=== PATIENT | male | born 1990 | race Hispanic/Latino ===

== ENCOUNTER 2018-04-13 19:47 | Emergency (ER) | payer OTHER, SELFPAY ==
--- NOTE | 2018-04-13 19:58 | ER ---
Nurse's Notes [facility] Name: Saeid Coffey Jr Age: 28 yrs Sex: Male : 1990 Arrival Date: 04/13/2018 Time: 19:48 Bed Waiting Private MD: Diagnosis: Presentation: 04/13 19:56 Note Patient informed registration that he was going to leave and would come back if it aj got worse. ED Course: 19:48 Patient arrived in ED. am2 19:57 Meir Ovalles MD is Attending Physician. debbie Administered Medications: No medications were administered Outcome: 19:57 Eloped from waiting room, before seeing physician Time discovered patient gone: aj April 13, 2018 at 19:57 19:57 Patient left the ED. debbie Signatures: Ania Middleton, RN RN Ania Kaba am2
== END 2018-04-13 19:57 | disposition left against medical advice (07) ==
LOC: ER 19:47
DX: Z53.21 Procedure and treatment not carried out due to patient leaving prior to being seen by health care provider (principal)

== ENCOUNTER 2018-05-06 18:00 | Emergency (ER) | payer SELFPAY ==
[2018-05-06] MEDS ORDERED: KETOROLAC 30 MG/ML INJ ONE (18:29)
[2018-05-06 18:52] LABS: Absolute Monocytes 0.7 K/uL (0.1-1.3); Basophils % 0.5 % (0-1.3); Eosinophils % 2.2 % (0-4.4); Hematocrit 39.3 % (39.6-49.0); Lymphocytes % 24.9 % (15.3-44.8); MCH 31.8 pg (27.0-35.0); MCV 90.4 fL (80-100); RBC Red Blood Cell Count 4.35 M/uL (4.33-5.43)
--- NOTE | 2018-05-06 18:57 | RAD REPORT ---
EXAM DESCRIPTION: RAD - Elbow Left 3 View - 05/06/2018 6:45 pm CLINICAL HISTORY: Soft tissue swelling, cellulitis symptoms, no trauma history detailed COMPARISON: None. FINDINGS: No fracture is identified and no elevated posterior fat pad. There is no dislocation or pe riosteal reaction noted. No acute bone or joint finding. Edematous soft tissues in the elbow and pro ximal forearm without air or foreign body. No soft tissue calcifications. IMPRESSION: Soft tissue edema changes are present. No acute bone or joint finding.
[2018-05-06 19:13] LABS: BUN Blood Urea Nitrogen 13 mg/dL (7-18); Bicarbonate 26 mmol/L (21-32); Glucose Level 94 mg/dL (74-106); Potassium 3.8 mmol/L (3.5-5.1); Sodium Level 143 mmol/L (136-145); Uric Acid 5.2 mg/dL (3.5-7.2)
[2018-05-06] MEDS ORDERED: SMZ./TMP. 800/160 MG TABLET ONE (19:31)
[2018-05-06] MEDS ORDERED: CLINDAMYCIN 600MG/D5W 600 MG/50 ML BAG IV ONE (19:31)
--- NOTE | 2018-05-06 19:44 | ER ---
Nurse's Notes [facility] Name: Saeid Coffey Jr Age: 28 yrs Sex: Male : 1990 Arrival Date: 05/06/2018 Time: 18:02 Bed 23 Private MD: Diagnosis: Cellulitis of left upper limb Presentation: 05/06 18:03 Presenting complaint: Patient states: Left elbow swelling since Tuesday. Transition aj of care: patient was not received from another setting of care. Onset of symptoms was May 02, 2018. Risk Assessment: Do you want to hurt yourself or someone else? Patient reports no desire to harm self or others. Initial Sepsis Screen: Does the patient meet any 2 criteria? No. Patient's initial sepsis screen is negative. Does the patient have a suspected source of infection? No. Patient's initial sepsis screen is negative. Care prior to arrival: None. 18:03 Method Of Arrival: Ambulatory aj 18:03 Acuity: KELLY 4 aj Triage Assessment: 18:04 General: Appears in no apparent distress. comfortable, Behavior is calm, cooperative, aj appropriate for age. Pain: Denies pain. Neuro: Level of Consciousness is awake, alert, obeys commands, Oriented to person, place, time, situation, Appropriate for age. Respiratory: No deficits noted. Airway is patent Respiratory effort is even, unlabored, Respiratory pattern is regular, symmetrical. Derm: Skin is intact, is healthy with good turgor, Skin is pink, warm \T\ dry. normal. Musculoskeletal: Swelling present in left elbow. Historical: - Allergies: 18:04 No Known Allergies; aj - Home Meds: 18:04 None [Active]; aj - PMHx: 18:04 None; aj - PSHx: 18:04 None; aj - Immunization history:: Last tetanus immunization: unknown. - Social history:: Smoking status: Patient uses tobacco products, denies chronic smoking, but will smoke occasionally, Patient uses alcohol, occasionally. - Ebola Screening: : Patient negative for fever greater than or equal to 101.5 degrees Fahrenheit, and additional compatible Ebola Virus Disease symptoms Patient denies exposure to infectious person Patient denies travel to an Ebola-affected area in the 21 days before illness onset No symptoms or risks identified at this time. Screenin:16 Abuse screen: Denies threats or abuse. Nutritional screening: No deficits noted. tl3 Tuberculosis screening: No symptoms or risk factors identified. Fall Risk None identified. Assessment: 18:16 General: Appears in no apparent distress. slender, well groomed, well developed, well tl3 nourished, Behavior is calm, cooperative, appropriate for age. Pain: Complains of pain in left elbow Pain currently is 5 out of 10 on a pain scale. at worst was 9 out of 10 on a pain scale. Neuro: No deficits noted. Level of Consciousness is awake, alert, obeys commands, Oriented to person, place, time, situation, Appropriate for age. Cardiovascular: Patient's skin is warm and dry. Respiratory: Airway is patent Respiratory effort is even, unlabored, Respiratory pattern is regular, symmetrical. GI: No signs and/or symptoms were reported involving the gastrointestinal system. : No signs and/or symptoms were reported regarding the genitourinary system. EENT: No signs and/or symptoms were reported regarding the EENT system. Derm: No signs and/or symptoms reported regarding the dermatologic system. Musculoskeletal: Reports since three days of pain and swelling to right elbow. 19:09 Reassessment: Patient appears in no apparent distress at this time. No changes from tl3 previously documented assessment. Patient and/or family updated on plan of care and expected duration. Pain level reassessed. Patient is alert, oriented x 3, equal unlabored respirations, skin warm/dry/pink. pt states that he is feeling better, still some soreness in elbow area. Vital Signs: 18:04 BP 138 / 79; Pulse 94; Resp 17; Temp 98.3; Pulse Ox 98% on R/A; Weight 70.76 kg; Height aj 5 ft. 9 in. (175.26 cm); 20:03 BP 131 / 83; Pulse 85; Resp 18; Pulse Ox 98% on R/A; tl3 18:04 Body Mass Index 23.04 (70.76 kg, 175.26 cm) ED Course: 18:02 Patient arrived in ED. mr 18:04 Triage completed. aj 18:04 Arm band placed on right wrist. Patient placed in an exam room. 18:06 Jesus Acuna PA is PHCP. cp 18:06 Jose Sher MD is Attending Physician. cp 18:06 Jasmyn, Kenia, RN is Primary Nurse. tl3 18:16 Bed in low position. Call light in reach. tl3 18:16 No provider procedures requiring assistance completed. tl3 18:27 Inserted saline lock: 20 gauge in right antecubital area, using aseptic technique. mg2 Blood collected. 18:43 XRAY Elbow LEFT 3 view In Process Unspecified. EDMS 19:31 Adriel Menezes MD is Referral Physician. cp 20:11 IV discontinued, intact, bleeding controlled, No redness/swelling at site. Pressure tl3 dressing applied. Administered Medications: 18:35 Drug: TORadol 30 mg Route: IVP; Site: right antecubital; ss 19:08 Follow up: Response: Pain is decreased tl3 19:33 Drug: Clindamycin 600 mg Route: IVPB; Infused Over: 30 mins; Site: right antecubital; tl3 Delivery: Primary tubing; 20:06 Follow up: IV Status: Completed infusion; IV Intake: 50ml tl3 19:33 Drug: Bactrim (160 mg-800 mg (DS) 1 tablet Route: PO; tl3 20:07 Follow up: Response: No adverse reaction tl3 Intake: 20:06 IV: 50ml; Total: 50ml. tl3 Outcome: 19:31 Discharge ordered by MD. cp 20:07 Discharged to home ambulatory. tl3 20:07 Condition: improved 20:07 Discharge instructions given to patient, family, Instructed on discharge instructions, follow up and referral plans. medication usage, Demonstrated understanding of instructions, follow-up care, medications, Prescriptions given X 3. 20:12 Patient left the ED. tl3 Signatures: Dispatcher [employer] EDSD Ania Middleton RN RN aj Rivera, Mary mr Jessica Hernandez RN RN ss Page, Corey, RANGEL PA Kenia Lake RN RN tl3 Girish Maya RN RN mg2 Corrections: (The following items were deleted from the chart) 18:27 18:16 Patient did not have IV access during this emergency room visit. tl3 mg2
--- NOTE | 2018-05-06 19:44 | EDPHYS ---
Physician Documentation [facility] Name: Saeid Coffey Jr Age: 28 yrs Sex: Male : 1990 Arrival Date: 05/06/2018 Time: 18:02 Bed 23 Private MD: ED Physician Jose Sher HPI: 05/06 18:25 This 28 yrs old Male presents to ER via Ambulatory with complaints of elbow cp swelling. Historical: - Allergies: 18:04 No Known Allergies; aj - Home Meds: 18:04 None [Active]; aj - PMHx: 18:04 None; aj - PSHx: 18:04 None; aj - Immunization history:: Last tetanus immunization: unknown. - Social history:: Smoking status: Patient uses tobacco products, denies chronic smoking, but will smoke occasionally, Patient uses alcohol, occasionally. - Ebola Screening: : Patient negative for fever greater than or equal to 101.5 degrees Fahrenheit, and additional compatible Ebola Virus Disease symptoms Patient denies exposure to infectious person Patient denies travel to an Ebola-affected area in the 21 days before illness onset No symptoms or risks identified at this time. ROS: 18:30 Constitutional: Negative for body aches, chills, fever, poor PO intake. cp 18:30 Eyes: Negative for injury, pain, redness, and discharge. cp 18:30 Cardiovascular: Negative for chest pain, palpitations. 18:30 Respiratory: Negative for cough, shortness of breath, wheezing. 18:30 Abdomen/GI: Negative for abdominal pain, nausea, vomiting, and diarrhea. 18:30 MS/extremity: Positive for pain, swelling, tenderness, warmth, of the left elbow, Negative for injury or acute deformity, decreased range of motion, paresthesias. 18:30 Skin: Negative for abscesses. 18:30 All other systems are negative. Exam: 18:35 Constitutional: The patient appears in no acute distress, alert, awake, non-toxic, well cp developed, well nourished. 18:35 Head/Face: Normocephalic, atraumatic. cp 18:35 Eyes: Periorbital structures: appear normal, Conjunctiva: normal, no exudate, no injection, Sclera: no appreciated abnormality, Lids and lashes: appear normal, bilaterally. 18:35 ENT: External ear(s): are unremarkable, Nose: is normal, Mouth: Lips: moist, Oral mucosa: pink and intact, moist, Posterior pharynx: is normal, airway is patent, no erythema, no exudate. 18:35 Chest/axilla: Inspection: normal, Palpation: is normal, no crepitus, no tenderness. 18:35 Cardiovascular: Rate: normal, Rhythm: regular, Pulses: Pulses are 2+ in right radial artery and left radial artery. 18:35 Respiratory: the patient does not display signs of respiratory distress, Respirations: normal, no use of accessory muscles, no retractions, no splinting, no tachypnea, labored breathing, is not present, Breath sounds: are clear throughout, no decreased breath sounds, no stridor, no wheezing. 18:35 Abdomen/GI: Exam negative for discomfort, distension, guarding, Inspection: abdomen appears normal. 18:35 Skin: abscess, not appreciated, cellulitis, that is moderate, irregular, on the left elbow. Vital Signs: 18:04 BP 138 / 79; Pulse 94; Resp 17; Temp 98.3; Pulse Ox 98% on R/A; Weight 70.76 kg; Height aj 5 ft. 9 in. (175.26 cm); 20:03 BP 131 / 83; Pulse 85; Resp 18; Pulse Ox 98% on R/A; tl3 18:04 Body Mass Index 23.04 (70.76 kg, 175.26 cm) aj MDM: 18:06 Patient medically screened. cp 19:00 Differential diagnosis: cellulitis, bursitis, septic joint, abscess. cp 19:30 Data reviewed: vital signs, nurses notes, lab test result(s), radiologic studies, plain cp films. 19:30 Test interpretation: by ED physician or midlevel provider: plain radiologic studies. cp Counseling: I had a detailed discussion with the patient and/or guardian regarding: the historical points, exam findings, and any diagnostic results supporting the discharge/admit diagnosis, lab results, radiology results, the need for outpatient follow up, a orthopedic surgeon, to return to the emergency department if symptoms worsen or persist or if there are any questions or concerns that arise at home. Response to treatment: the patient's symptoms have mildly improved after treatment, and as a result, I will discharge patient. ED course: VSS. Pain improved with meds. Will discharge to home for continued monitoring. 09/29 18:18 Order name: CBC with Diff; Complete Time: 19:11 cp 05/06 19:11 Interpretation: Normal except: HCT 39.3. cp 05/06 18:18 Order name: BMP; Complete Time: 19:20 cp 05/06 18:18 Order name: Uric Acid; Complete Time: 19:20 cp 05/06 18:19 Order name: XRAY Elbow LEFT 3 view; Complete Time: 19:11 cp 05/06 18:19 Order name: IV; Complete Time: 18:27 cp Administered Medications: 18:35 Drug: TORadol 30 mg Route: IVP; Site: right antecubital; ss 19:08 Follow up: Response: Pain is decreased tl3 19:33 Drug: Clindamycin 600 mg Route: IVPB; Infused Over: 30 mins; Site: right antecubital; tl3 Delivery: Primary tubing; 20:06 Follow up: IV Status: Completed infusion; IV Intake: 50ml tl3 19:33 Drug: Bactrim (160 mg-800 mg (DS) 1 tablet Route: PO; tl3 20:07 Follow up: Response: No adverse reaction tl3 Disposition: 05/07 18:22 Co-signature as Attending Physician, Jose Sher MD. Disposition: 05/06/18 19:31 Discharged to Home. Impression: Cellulitis of left upper limb. - Condition is Stable. - Discharge Instructions: Cellulitis, Adult. - Prescriptions for Anaprox DS 550 mg Oral Tablet - take 1 tablet by ORAL route every 12 hours As needed; 20 tablet. Clindamycin HCl 300 mg Oral Capsule - take 1 capsule by ORAL route every 6 hours for 10 days; 40 capsule. Bactrim DS 800- 160 mg Oral Tablet - take 1 tablet by ORAL route every 12 hours for 10 days; 20 tablet. - Medication Reconciliation Form, Thank You Letter, Antibiotic Education, Prescription Opioid Use form. - Follow up: Adriel Menezes MD; When: 48 Hours; Reason: Recheck today's complaints. - Problem is new. - Symptoms have improved. Signatures: Dispatcher [employer] Ania Franco RN RN aj Smirch, Shelby, RN RN ss Jesus Acuna, RANGEL PA Jose Sherman MD MD Kenia Vines RN RN tl3 Corrections: (The following items were deleted from the chart) 05/06 20:12 19:31 05/06/2018 19:31 Discharged to Home. Impression: Cellulitis of left upper limb. tl3 Condition is Stable. Forms are Medication Reconciliation Form, Thank You Letter, Antibiotic Education, Prescription Opioid Use. Follow up: Adriel Menezes; When: 48 Hours; Reason: Recheck today's complaints. Problem is new. Symptoms have improved. cp
[2018-05-06 20:24] VITALS: TEMP 98.3; O2SAT 98
[2018-05-06 20:25] VITALS: BP 131/83
== END 2018-05-06 20:12 | disposition home or self-care (01) ==
LOC: ER 18:00
DX: L03.114 Cellulitis of left upper limb (principal); Z72.0 Tobacco use
CPT/HCPCS: 36415; 80048; 84550; 85025; 96365; 96375; 99284

== ENCOUNTER 2018-07-05 23:40 | Emergency (ER) | payer SELFPAY ==
[2018-07-06] MEDS ORDERED: TETANUS & DIPHTHERIA TOX,ADULT 0.5 ML VIAL ONE (01:57)
[2018-07-06] MEDS ORDERED: LIDOCAINE 1% MPF 5 ML VIAL ONE ×3 (01:58→03:14)
[2018-07-06] MEDS ORDERED: LIDOCAINE 1% MPF 30 ML VIAL ONE (03:16)
[2018-07-06] MEDS ORDERED: CEFAZOLIN SODIUM 1 GM/VIAL ONE (03:58)
--- NOTE | 2018-07-06 04:01 | ER ---
Nurse's Notes [facility] Name: Saeid Coffey Jr Age: 28 yrs Sex: Male : 1990 Arrival Date: 07/05/2018 Time: 23:41 Bed 6 Private MD: Diagnosis: Laceration without foreign body of right ring finger without damage to nail;Laceration without foreign body of right little finger without damage to nail;Other injury of flexor muscle, fascia and tendon of right little finger at wrist and hand level;Other injury of flexor muscle, fascia and tendon of right ring finger at wrist and hand level Presentation: 07/05 23:46 Presenting complaint: Patient states: Patient was cooking and he was cutting onions and ao cut his right pinkie finger with the kitchen knife. Patient had a laceration on the right had. Pressure put and bleeding is getting control. Transition of care: patient was not received from another setting of care. Onset of symptoms was July 05, 2018 at 22:00. Risk Assessment: Do you want to hurt yourself or someone else? Patient reports no desire to harm self or others. Initial Sepsis Screen: Does the patient meet any 2 criteria? No. Patient's initial sepsis screen is negative. Does the patient have a suspected source of infection? No. Patient's initial sepsis screen is negative. Care prior to arrival: None. 23:46 Method Of Arrival: Ambulatory ao 23:46 Acuity: KELLY 3 ao Historical: - Allergies: 23:49 No Known Allergies; ao - Home Meds: 23:49 None [Active]; ao - PMHx: 23:49 None; ao - PSHx: 23:49 None; ao - Immunization history:: Adult Immunizations up to date, Last tetanus immunization: unknown. - Social history:: Smoking status: Patient uses tobacco products, denies chronic smoking, but will smoke occasionally, Patient/guardian denies using alcohol, street drugs. - Ebola Screening: : Patient negative for fever greater than or equal to 101.5 degrees Fahrenheit, and additional compatible Ebola Virus Disease symptoms Patient denies exposure to infectious person Patient denies travel to an Ebola-affected area in the 21 days before illness onset. Screenin/29 01:53 Abuse screen: Denies threats or abuse. Nutritional screening: No deficits noted. jd3 Tuberculosis screening: No symptoms or risk factors identified. Fall Risk Ambulatory Aid- None/Bed Rest/Nurse Assist (0 pts). Gait- Normal/Bed Rest/Wheelchair (0 pts) Mental Status- Oriented to own ability (0 pts). Total Delarosa Fall Scale indicates No Risk (0-24 pts). Assessment: 01:52 General: Appears in no apparent distress. uncomfortable, Behavior is calm, cooperative, jd3 appropriate for age. Pain: Complains of pain in right hand. Neuro: Level of Consciousness is awake, alert, obeys commands, Oriented to person, place, time, situation. Cardiovascular: Capillary refill < 3 seconds Patient's skin is warm and dry. Respiratory: Airway is patent Respiratory effort is even, unlabored, Respiratory pattern is regular, symmetrical. GI: : No signs and/or symptoms were reported regarding the genitourinary system. EENT: No signs and/or symptoms were reported regarding the EENT system. Derm: Skin is intact, Skin is dry, Skin is normal, Skin temperature is warm. Musculoskeletal: Circulation, motion, and sensation intact. Range of motion: intact in all extremities. Injury Description: Laceration sustained to palmar aspect of middle phalanx of right little finger and palmar aspect of middle phalanx of right ring finger is 0.5 to 2.5 cm long, not bleeding, a small amount of bleeding noted at this time. 02:50 Reassessment: Patient and/or family updated on plan of care and expected duration. Pain ea level reassessed. Patient is alert, oriented x 3, equal unlabored respirations, skin warm/dry/pink. 03:00 Reassessment: Patient and/or family updated on plan of care and expected duration. Pain ea level reassessed. Patient is alert, oriented x 3, equal unlabored respirations, skin warm/dry/pink. 04:08 Reassessment: Report called to Joselyn ALCARAZ at [facility]. ea 04:58 Reassessment: Patient and/or family updated on plan of care and expected duration. Pain ea level reassessed. Patient is alert, oriented x 3, equal unlabored respirations, skin warm/dry/pink. [facility] at facility for transfer. Vital Signs: 07/05 23:49 BP 119 / 69; Pulse 72; Resp 18; Temp 98.1(O); Pulse Ox 100% ; Weight 68.04 kg; Height 5 ao ft. 7 in. (170.18 cm); Pain 02/14; 07/06 01:30 BP 120 / 70; Pulse 60; Resp 18; Pulse Ox 98% on R/A; ea 03:20 BP 117 / 72; Pulse 68; Resp 18; Pulse Ox 99% ; ea 04:45 BP 120 / 68; Pulse 70; Resp 18; Temp 98; Pulse Ox 99% ; ea 07/05 23:49 Body Mass Index 23.49 (68.04 kg, 170.18 cm) ao ED Course: 07/05 23:41 Patient arrived in ED. am2 23:49 Triage completed. ao 23:51 Arm band placed on right wrist. Patient placed in an exam room, on a stretcher, on ao pulse oximetry, Patient notified of wait time. 07/06 01:08 Michael aCrmona NP is PHCP. pm1 01:08 Meir Ovalles MD is Attending Physician. pm1 01:44 Hilda Mcpherson RN is Primary Nurse. ea 01:54 Patient has correct armband on for positive identification. Bed in low position. Call jd3 light in reach. Side rails up X 1. Adult w/ patient. 01:57 X-ray completed. Portable x-ray completed in exam room. Patient tolerated procedure kw well. 01:58 Hand Right 3 View XRAY In Process Unspecified. EDMS 03:14 Assist provider with laceration repair on palmar aspect of middle phalanx of right ring ea finger and palmar aspect of middle phalanx of right little finger that was between 2.6 to 7.5 cm using sutures. Set up tray. Performed by Michael Carmona NP Patient tolerated well. 05:00 Patient did not have IV access during this emergency room visit. ea Administered Medications: 02:02 Drug: Tetanus-Diphtheria Toxoid Adult 0.5 ml {Cooler Operator: [employer]. Exp: jd3 08/26/2020. Lot #: [id number]. } Route: IM; Site: left deltoid; 03:03 Follow up: Response: No adverse reaction jd3 03:02 Drug: Lidocaine (1 %) 5 ml {Note: administered by Dennis LEWIS.} Volume: 5 ml; Route: jd3 Infiltration; 03:55 Drug: Ancef 1 grams Route: IM; Site: right gluteus; ea 04:53 Follow up: Response: No adverse reaction jd3 Outcome: 04:00 ER care complete, transfer ordered by MD. pm1 04:10 Instructed on the need for transfer. ea 04:59 Condition: stable ea 05:00 Transferred by ground EMS to [facility], Transfer form completed. ea 05:01 Patient left the ED. ea Signatures: Dispatcher [employer] EDMS Naty Love Alex, RN RN Michael Madrid, DEBBIE STOKER INSTALLER pm1 Ania Vogel am2 Hilda Mcpherson, Remington Hobson RN, ea, RN RN jd3
--- NOTE | 2018-07-06 04:01 | EDPHYS ---
Physician Documentation [facility] Name: Saeid Coffey Jr Age: 28 yrs Sex: Male : 1990 Arrival Date: 07/05/2018 Time: 23:41 Bed 6 Private MD: ED Physician Meir Ovalles HPI: 07/06 02:00 This 28 yrs old Male presents to ER via Ambulatory with complaints of Hand pm1 Injury. 02:00 The patient or guardian reports a laceration, 4 cm(s). The complaints affect the palmar pm1 aspect of proximal phalanx of right little finger and palmar aspect of proximal phalanx of right ring finger. Context: The problem was sustained at home, resulted from accidental laceration while cutting vegetables. Onset: The symptoms/episode began/occurred just prior to arrival. Modifying factors: The symptoms are alleviated by nothing, the symptoms are aggravated by nothing. Associated signs and symptoms: Pertinent negatives: cyanosis distally, decreased sensation distally, numbness distally, tingling distally. The patient has not experienced similar symptoms in the past. The patient has not recently seen a physician, and does not have an established primary care provider. Historical: - Allergies: 07/05 23:49 No Known Allergies; ao - Home Meds: 23:49 None [Active]; ao - PMHx: 23:49 None; ao - PSHx: 23:49 None; ao - Immunization history:: Adult Immunizations up to date, Last tetanus immunization: unknown. - Social history:: Smoking status: Patient uses tobacco products, denies chronic smoking, but will smoke occasionally, Patient/guardian denies using alcohol, street drugs. - Ebola Screening: : Patient negative for fever greater than or equal to 101.5 degrees Fahrenheit, and additional compatible Ebola Virus Disease symptoms Patient denies exposure to infectious person Patient denies travel to an Ebola-affected area in the 21 days before illness onset. ROS: 07/06 02:00 Constitutional: Negative for fever, chills, and weight loss, Eyes: Negative for injury, pm1 pain, redness, and discharge, ENT: Negative for injury, pain, and discharge, Neck: Negative for injury, pain, and swelling, Cardiovascular: Negative for chest pain, palpitations, and edema, Respiratory: Negative for shortness of breath, cough, wheezing, and pleuritic chest pain, Abdomen/GI: Negative for abdominal pain, nausea, vomiting, diarrhea, and constipation, Back: Negative for injury and pain, : Negative for injury, bleeding, discharge, and swelling. MS/extremity: Positive for decreased range of motion, laceration, of the right ring finger and right little finger. Skin: Positive for laceration(s), of the palmar aspect of proximal phalanx of right ring finger and palmar aspect of proximal phalanx of right little finger. Exam: 02:00 Constitutional: This is a well developed, well nourished patient who is awake, alert, pm1 and in no acute distress. Head/Face: Normocephalic, atraumatic. Neck: Trachea midline, no thyromegaly or masses palpated, and no cervical lymphadenopathy. Supple, full range of motion without nuchal rigidity, or vertebral point tenderness. No Meningismus. Chest/axilla: Normal chest wall appearance and motion. Nontender with no deformity. No lesions are appreciated. Cardiovascular: Regular rate and rhythm with a normal S1 and S2. No gallops, murmurs, or rubs. Normal PMI, no JVD. No pulse deficits. Respiratory: Lungs have equal breath sounds bilaterally, clear to auscultation and percussion. No rales, rhonchi or wheezes noted. No increased work of breathing, no retractions or nasal flaring. Abdomen/GI: Soft, non-tender, with normal bowel sounds. No distension or tympany. No guarding or rebound. No evidence of tenderness throughout. Back: No spinal tenderness. No costovertebral tenderness. Full range of motion. 02:00 Musculoskeletal/extremity: Extremities: grossly normal except: inability to flex right fifth finger at DIP and PIP. inability to flex right fourth finger at DIP. 02:00 Skin: Appearance: normal except for affected area, injury, laceration(s), the wound is approximately 2 cm(s), with a depth of 0.5 cm(s), of the palmar aspect of proximal phalanx of right ring finger, the second wound is approximately 2 cm(s), with a depth of 1 cm(s), of the palmar aspect of proximal phalanx of right little finger. 02:00 Neuro: Orientation: is normal, Motor: is normal, Sensation: is normal, no obvious gross deficits. Vital Signs: 07/05 23:49 BP 119 / 69; Pulse 72; Resp 18; Temp 98.1(O); Pulse Ox 100% ; Weight 68.04 kg; Height 5 ao ft. 7 in. (170.18 cm); Pain 02/14; 07/06 01:30 BP 120 / 70; Pulse 60; Resp 18; Pulse Ox 98% on R/A; ea 03:20 BP 117 / 72; Pulse 68; Resp 18; Pulse Ox 99% ; ea 04:45 BP 120 / 68; Pulse 70; Resp 18; Temp 98; Pulse Ox 99% ; ea 07/05 23:49 Body Mass Index 23.49 (68.04 kg, 170.18 cm) ao Laceration: 03:48 Wound Repair of 4cm ( 1.6in ) subcutaneous laceration to palmar aspect of middle pm1 phalanx of right ring finger and palmar aspect of middle phalanx of right little finger. Linear shaped.. Distal neuro/vascular/tendon intact. Anesthesia: Digital block administered with 4 mls of 1% lidocaine. Wound prep: Extensive cleansing by nurse, Wound irrigation with saline by me, Wound explored extensively. Skin closed with 14 5-0 Prolene using simple sutures and sterile technique. Dressed with 4x4's. Patient tolerated well. MDM: 01:08 Patient medically screened. pm1 03:30 Counseling: I had a detailed discussion with the patient and/or guardian regarding: the pm1 historical points, exam findings, and any diagnostic results supporting the discharge/admit diagnosis, radiology results, the need to transfer to another facility, for higher level of care, [facility] does not immediately have the required specialist, repair of flexor tendons to dominant right hand 4th and 5th fingers. 03:40 Physician consultation: Hand Brandyn Ovalles discussed case with Dr. Ahumada pm1 and he will see him in the ER of [facility]. Dr. Ovalles discussed case with ER doctor at [facility] also. 03:58 Data reviewed: vital signs. Data interpreted: Pulse oximetry: on room air is 99 %. pm1 Interpretation: normal. 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 Exp: jd3 08/26/2020. Lot #: [id number]. } Route: IM; Site: left deltoid; 03:03 Follow up: Response: No adverse reaction jd3 03:02 Drug: Lidocaine (1 %) 5 ml {Note: administered by Dennis TEST LEAD.} Volume: 5 ml; Route: jd3 Infiltration; 03:55 Drug: Ancef 1 grams Route: IM; Site: right gluteus; ea 04:53 Follow up: Response: No adverse reaction jd3 Disposition: 06:51 Co-signature as Attending Physician, Meir Ovalles MD Available for consultation at ps1 all times. . Disposition: 07/06/18 04:00 Transfer ordered to [facility]. Diagnosis are Laceration without foreign body of right ring finger without damage to nail, Laceration without foreign body of right little finger without damage to nail, Other injury of flexor muscle, fascia and tendon of right little finger at wrist and hand level, Other injury of flexor muscle, fascia and tendon of right ring finger at wrist and hand level. - Reason for transfer: Higher level of care. - Accepting physician is Chi Arellano. - Condition is Stable. - Problem is new. - Symptoms have improved. Signatures: Dispatcher [employer] [facility] Jaron Christian RN RN ao Marinas, Patrick, NP TEST LEAD pm1 Hilda Mcpherson RN RN ea Davies, Jonathon, RN RN jd3 Singer, Phillip, MD MD ps1 Corrections: (The following items were deleted from the chart) 05:01 04:00 07/06/2018 04:00 Transfer ordered to [facility]. ea Diagnosis is Laceration without foreign body of right ring finger without damage to nail; Laceration without foreign body of right little finger without damage to nail; Other injury of flexor muscle, fascia and tendon of right little finger at wrist and hand level; Other injury of flexor muscle, fascia and tendon of right ring finger at wrist and hand level. Reason for transfer: Higher level of care. Accepting physician is Chi Arellano. Condition is Stable. Problem is new. Symptoms have improved. pm1
[2018-07-06 07:00] VITALS: O2SAT 99
[2018-07-06 07:02] VITALS: BP 120/68; TEMP 98
--- NOTE | 2018-07-06 07:13 | RAD REPORT ---
EXAM DESCRIPTION: RAD - Hand Right 3 View - 07/06/2018 1:59 am CLINICAL HISTORY: Hand pain, laceration fifth digit COMPARISON: None. FINDINGS: No fracture is identified. There is no dislocation or periosteal reaction noted. Bandagin g is in place surrounding the fifth digit. No foreign body suspected. IMPRESSION: No foreign body identified. No acute bone or joint finding.
== END 2018-07-06 05:01 | disposition short-term general hospital (02) ==
LOC: ER 23:40
PROC: 0JQJ0ZZ Repair Right Hand Subcutaneous Tissue and Fascia, Open Approach (ICD-10-PCS; principal; 2018-07-06)
DX: S61.214A Laceration without foreign body of right ring finger without damage to nail, initial encounter (principal); S66.196A Other injury of flexor muscle, fascia and tendon of right little finger at wrist and hand level, initial encounter; S66.194A Other injury of flexor muscle, fascia and tendon of right ring finger at wrist and hand level, initial encounter; W45.8XXA Other foreign body or object entering through skin, initial encounter; Y93.G3 Activity, cooking and baking; Y92.000 Kitchen of unspecified non-institutional (private) residence as the place of occurrence of the external cause; Z23 Encounter for immunization; Z72.0 Tobacco use
CPT/HCPCS: 90714; 96372; 99285; J0690